=== PATIENT | female | born 1955 | race African-American/Black ===

== ENCOUNTER 2019-03-01 08:09 | Outpatient (CLI) | payer MEDICARE, MEDICAID ==
--- NOTE | 2019-03-04 13:29 | RAD ---
Modified Barium Swallow CLINICAL HISTORY: Dysphagia, unspecified R13.10, feeding difficulties R 63.3 FINDINGS: The examination is performed under real-time fluoroscopy under guidance of the speech ther apy department. 30.3 seconds fluoroscopic time. There were episodes of tracheal penetration only with thin barium liquids, barium nectar and barium honey. No episodes of tracheal aspiration were demonstrated. IMPRESSION: No evidence of stricture or aspiration. Tracheal penetration only with thin barium liquid s, barium nectar and barium honey. Reference speech pathology report for further details.
== END 2019-03-01 08:10 | disposition home or self-care (01) ==
PROVIDERS: ATTEND Nurse Practitioner Acute Care
DX: I69.191 Dysphagia following nontraumatic intracerebral hemorrhage (principal); R13.13 Dysphagia, pharyngeal phase; G20 Parkinson's disease
CPT/HCPCS: 74230

== ENCOUNTER 2020-09-17 12:35 | Outpatient (CLI) | payer MEDICARE, MEDICAID | END 2020-09-17 12:36 | disposition home or self-care (01) | LOC: BICRAD 12:35 | PROVIDERS: ATTEND Internal Medicine Critical Care Medicine | DX: R06.00 Dyspnea, unspecified (principal); J98.4 Other disorders of lung | CPT/HCPCS: 71046 ==

== ENCOUNTER 2020-11-04 19:39 | Inpatient (IN) | payer MEDICARE, MEDICAID ==
[~2020-11-04 19:39] MED LIST: Iopamidol-370 76% 500 ML 1 ML ONE
[2020-11-04 20:20] LABS: #Eosinphils 0.2 thou/uL (0.0-0.7); #Lymphocytes 1.5 thou/uL (1.20-3.40); #Monocytes 0.9 thou/uL (0.11-0.59); #Neutrophils 5.6 thou/uL (1.40-6.50); %Basophils 0.4 % (0.0-1.0); %Eosinophils 2.5 % (0.0-10.0); %Lymphocytes 18.5 % (21.0-51.0); %Monocytes 11.3 % (0.0-10.0); %Neutrophils 67.4 % (42.0-75.0); Hemoglobin 8.2 g/dL (12.0-16.0); Mean Corpuscular HGB CONC 30.3 g/dL (32.0-36.0); Mean Corpuscular Hemoglobin 20.7 pg (27.0-31.0); Mean Corpuscular Volume 68.3 fL (78.0-98.0); Mean Platelet Volume 6.6 fL (7.4-10.4); Platelet Count 318 thou/uL (130-400); RBC Distribution Width 21.4 % (11.5-14.5); Red Blood Cell (RBC) Count 3.97 mill/uL (4.20-5.40); White Blood Cell (WBC) Count 8.3 thou/uL (4.8-10.8)
[2020-11-04 20:30] LABS: PTT 43.6 sec (22.9-36.1); Prothrombin Time 15.7 sec (12.0-14.7)
[2020-11-04 20:31] LABS: INR-International Normal Ratio 1.2
[2020-11-04 20:41] LABS: ALT (SGPT) 13 U/L (8-55); AST (SGOT) 33 U/L (5-34); Albumin 3.4 g/dL (3.4-4.8); Alkaline Phosphatase 127 U/L (40-110); Anion Gap 15 mmol/L (10-20); BUN (Urea Nitrogen) 17 mg/dL (9.8-20.1); Bilirubin, Total 0.8 mg/dL (0.2-1.2); Calc. Creatinine Clearance 0 mL/min (70-130); Calcium 8.5 mg/dL (7.8-10.44); Carbon Dioxide 28 mmol/L (23-31); Chloride 98 mmol/L (98-107); Glucose 122 mg/dL (80-115); Lipase 24 U/L (8-78); Magnesium 1.8 mg/dL (1.6-2.6); Potassium 3.1 mmol/L (3.5-5.1); Protein, Total 7.4 g/dL (5.8-8.1); Sodium 138 mmol/L (136-145)
[2020-11-04] MEDS ORDERED: Lorazepam 2 MG/ML VIAL ONE (21:33)
[2020-11-04 22:15] LABS: SARS-CoV-2 NAA Rapid Test Not Detected (NotDetected)
[2020-11-04] MEDS ORDERED: Dextrose 5 %-0.45 % NaCl 1,000 ML IV SCH (23:00)
[2020-11-04] MEDS ORDERED: Labetalol HCl 100 MG/20 ML VIAL SLOW IVP PRN (23:42)
[2020-11-04] MEDS ORDERED: NO ANTITHROMBOTICS FS SCH (23:42)
[2020-11-04] MEDS ORDERED: Ondansetron PF 4 MG/2 ML Vial IVP PRN (23:42)
[2020-11-04] MEDS ORDERED: Acetaminophen 650 MG Suppository PR PRN (23:42)
[2020-11-04] MEDS ORDERED: hydrALAZINE 20 MG/ML VIAL SLOW IVP PRN (23:42)
[2020-11-05] MEDS: Sodium Chloride 0.9% 1,000 ML IV SCH ×3 (00:41→22:28)
[2020-11-05] MEDS: Potassium Chloride 20 MEQ in Premix Bag 1 BAG IVPB SCH ×3 (02:34→22:23)
[2020-11-05] MEDS ORDERED: Dextrose 50% Abboject 50 ML SYRINGE SLOW IVP PRN (07:46)
[2020-11-05] MEDS ORDERED: HumaLOG 300 UNITS/3 ML VIAL SC PRN (07:46)
[2020-11-05] MEDS ORDERED: Dextrose 5% in Water 1,000 ML IV PRN (07:46)
[2020-11-05] MEDS ORDERED: Famotidine/PF 20 mg/2ml Vial SLOW IVP SCH (09:00)
[2020-11-05 21:06] LABS: #Eosinphils 0.2 thou/uL (0.0-0.7); #Lymphocytes 1.7 thou/uL (1.20-3.40); #Monocytes 0.8 thou/uL (0.11-0.59); #Neutrophils 4.3 thou/uL (1.40-6.50); %Basophils 0.1 % (0.0-1.0); %Eosinophils 2.6 % (0.0-10.0); %Lymphocytes 23.7 % (21.0-51.0); %Monocytes 11.5 % (0.0-10.0); Hemoglobin 8.1 g/dL (12.0-16.0); Mean Corpuscular HGB CONC 29.7 g/dL (32.0-36.0); Mean Corpuscular Hemoglobin 20.6 pg (27.0-31.0); Mean Corpuscular Volume 69.3 fL (78.0-98.0); Platelet Count 313 thou/uL (130-400); RBC Distribution Width 21.3 % (11.5-14.5); Red Blood Cell (RBC) Count 3.91 mill/uL (4.20-5.40)
[2020-11-05 21:25] LABS: ALT (SGPT) 13 U/L (8-55); AST (SGOT) 29 U/L (5-34); Albumin 3.1 g/dL (3.4-4.8); Alkaline Phosphatase 112 U/L (40-110); Anion Gap 12 mmol/L (10-20); BUN (Urea Nitrogen) 18 mg/dL (9.8-20.1); Bilirubin, Total 0.6 mg/dL (0.2-1.2); Calc. Creatinine Clearance 50 mL/min (70-130); Calcium 8.6 mg/dL (7.8-10.44); Carbon Dioxide 28 mmol/L (23-31); Cardiac Risk 3.1 (Less than 4.5); Chloride 106 mmol/L (98-107); Cholesterol 94 mg/dl (< 200 Desired); Globulin 3.8 g/dL (2.4-3.5); Glucose 82 mg/dL (80-115); HDL Cholesterol 30 mg/dL (>60 Neg Risk); LDL Cholesterol, Calculated 43 mg/dL; Magnesium 1.9 mg/dL (1.6-2.6); Potassium 3.3 mmol/L (3.5-5.1); Protein, Total 6.9 g/dL (5.8-8.1); Sodium 143 mmol/L (136-145); Triglycerides 105 mg/dL (Less than 150)
[2020-11-06] MEDS: Potassium Chloride 20 MEQ in Premix Bag 1 BAG IVPB SCH (01:43)
[2020-11-06 05:51] LABS: #Eosinphils 0.2 thou/uL (0.0-0.7); #Lymphocytes 1.7 thou/uL (1.20-3.40); #Monocytes 0.8 thou/uL (0.11-0.59); #Neutrophils 5.1 thou/uL (1.40-6.50); %Basophils 0.1 % (0.0-1.0); %Eosinophils 2.9 % (0.0-10.0); %Lymphocytes 21.4 % (21.0-51.0); %Monocytes 10.6 % (0.0-10.0); %Neutrophils 65.1 % (42.0-75.0); Hemoglobin 7.5 g/dL (12.0-16.0); Mean Corpuscular HGB CONC 28.6 g/dL (32.0-36.0); Mean Corpuscular Hemoglobin 19.8 pg (27.0-31.0); Mean Corpuscular Volume 69.2 fL (78.0-98.0); Mean Platelet Volume 6.7 fL (7.4-10.4); Platelet Count 334 thou/uL (130-400); RBC Distribution Width 21.5 % (11.5-14.5); White Blood Cell (WBC) Count 7.9 thou/uL (4.8-10.8)
[2020-11-06 05:52] LABS: ALT (SGPT) 13 U/L (8-55); AST (SGOT) 30 U/L (5-34); Alkaline Phosphatase 108 U/L (40-110); Anion Gap 13 mmol/L (10-20); BUN (Urea Nitrogen) 16 mg/dL (9.8-20.1); Bilirubin, Total 0.5 mg/dL (0.2-1.2); Calc. Creatinine Clearance 57 mL/min (70-130); Calcium 8.5 mg/dL (7.8-10.44); Carbon Dioxide 25 mmol/L (23-31); Chloride 108 mmol/L (98-107); Globulin 3.8 g/dL (2.4-3.5); Glucose 72 mg/dL (80-115); Potassium 3.7 mmol/L (3.5-5.1); Protein, Total 6.8 g/dL (5.8-8.1); Sodium 142 mmol/L (136-145)
[2020-11-06] MEDS: Famotidine/PF 20 mg/2ml Vial SLOW IVP SCH (12:21)
[2020-11-06] MEDS: Sodium Chloride 0.9% 1,000 ML IV SCH (17:13)
[2020-11-07] MEDS: Sodium Chloride 0.9% 1,000 ML IV SCH (05:32)
[2020-11-07 06:04] LABS: #Eosinphils 0.2 thou/uL (0.0-0.7); #Lymphocytes 1.7 thou/uL (1.20-3.40); #Monocytes 0.8 thou/uL (0.11-0.59); %Basophils 0.3 % (0.0-1.0); %Lymphocytes 22.4 % (21.0-51.0); %Monocytes 9.8 % (0.0-10.0); %Neutrophils 65.4 % (42.0-75.0); Hemoglobin 7.8 g/dL (12.0-16.0); Mean Corpuscular HGB CONC 28.6 g/dL (32.0-36.0); Mean Corpuscular Volume 70.1 fL (78.0-98.0); Mean Platelet Volume 10.6 fL (7.4-10.4); Platelet Count 338 thou/uL (130-400); RBC Distribution Width 21.3 % (11.5-14.5); Red Blood Cell (RBC) Count 3.89 mill/uL (4.20-5.40); White Blood Cell (WBC) Count 7.7 thou/uL (4.8-10.8)
[2020-11-07 06:17] LABS: Anion Gap 13 mmol/L (10-20); BUN (Urea Nitrogen) 11 mg/dL (9.8-20.1); Calc. Creatinine Clearance 67 mL/min (70-130); Calcium 8.9 mg/dL (7.8-10.44); Carbon Dioxide 25 mmol/L (23-31); Chloride 107 mmol/L (98-107); Glucose 113 mg/dL (80-115); Potassium 3.4 mmol/L (3.5-5.1); Sodium 142 mmol/L (136-145)
[2020-11-07] MEDS: Famotidine/PF 20 mg/2ml Vial SLOW IVP SCH (10:13)
[2020-11-07] MEDS: Clopidogrel Bisulfate 75 MG TAB PO SCH (10:14)
[2020-11-07] MEDS: hydrALAZINE 25 MG TAB PO SCH ×2 (15:52→20:13)
[2020-11-07] MEDS: Pregabalin 25 MG CAP PO SCH (20:12)
[2020-11-07] MEDS: Gabapentin 100 MG CAP PO SCH (20:13)
[2020-11-08 05:05] VITALS: BMI 37.9
[2020-11-08] MEDS: FLUoxetine HCl 20 MG CAP PO SCH (09:16)
[2020-11-08] MEDS: Cholecalciferol 1,000 UNITS (25 MCG) TAB PO SCH (09:16)
[2020-11-08] MEDS: Hydrochlorothiazide 25 MG TAB PO SCH (09:16)
[2020-11-08] MEDS: Torsemide 20 MG TAB PO SCH (09:17)
[2020-11-08] MEDS: hydrALAZINE 25 MG TAB PO SCH ×3 (09:17→21:35)
[2020-11-08] MEDS: Gabapentin 100 MG CAP PO SCH ×2 (09:17→21:35)
[2020-11-08] MEDS: Clopidogrel Bisulfate 75 MG TAB PO SCH (09:17)
[2020-11-08] MEDS: Lisinopril 20 MG TAB PO SCH (09:18)
[2020-11-08] MEDS: Famotidine/PF 20 mg/2ml Vial SLOW IVP SCH (09:18)
[2020-11-08] MEDS: Pregabalin 25 MG CAP PO SCH ×2 (09:48→21:38)
[2020-11-08] MEDS ORDERED: methylPREDNISolone Sod Succ 40 MG VIAL IVP SCH (14:30)
[2020-11-08] MEDS: Mometasone 100 MCG/Formoterol 5 MCG 120 PUFF INHALER INH SCH (19:09)
[2020-11-09] MEDS: Mometasone 100 MCG/Formoterol 5 MCG 120 PUFF INHALER INH SCH ×2 (07:08→19:09)
[2020-11-09] MEDS: Hydrochlorothiazide 25 MG TAB PO SCH (10:45)
[2020-11-09] MEDS: FLUoxetine HCl 20 MG CAP PO SCH (10:46)
[2020-11-09] MEDS: Cholecalciferol 1,000 UNITS (25 MCG) TAB PO SCH (10:46)
[2020-11-09] MEDS: Lisinopril 20 MG TAB PO SCH (10:46)
[2020-11-09] MEDS: hydrALAZINE 25 MG TAB PO SCH ×3 (10:47→21:33)
[2020-11-09] MEDS: Torsemide 20 MG TAB PO SCH (10:47)
[2020-11-09] MEDS: Famotidine/PF 20 mg/2ml Vial SLOW IVP SCH (10:48)
[2020-11-09] MEDS: Clopidogrel Bisulfate 75 MG TAB PO SCH (11:14)
[2020-11-09] MEDS: Pregabalin 25 MG CAP PO SCH ×2 (11:15→21:31)
[2020-11-09] MEDS: Gabapentin 100 MG CAP PO SCH ×2 (11:16→21:32)
[2020-11-09] MEDS ORDERED: Lorazepam 0.5 MG TAB PO PRN (13:44)
[2020-11-09] MEDS ORDERED: diphenhydrAMINE 25 MG CAP PO PRN (13:48)
[2020-11-09] MEDS ORDERED: Furosemide 40 MG/4 ML VIAL SLOW IVP SCH (14:00)
[2020-11-09] MEDS: methylPREDNISolone Sod Succ 40 MG VIAL IVP SCH ×2 (14:12→22:21)
[2020-11-09] MEDS: HumaLOG 300 UNITS/3 ML VIAL SC PRN (18:54)
[2020-11-09] MEDS ORDERED: Atorvastatin Calcium 40 MG TAB PO SCH (21:00)
[2020-11-10] MEDS: methylPREDNISolone Sod Succ 40 MG VIAL IVP SCH ×2 (06:29→14:26)
[2020-11-10 06:32] LABS: Anion Gap 13 mmol/L (10-20); BUN (Urea Nitrogen) 16 mg/dL (9.8-20.1); Calc. Creatinine Clearance 59 mL/min (70-130); Calcium 8.9 mg/dL (7.8-10.44); Carbon Dioxide 29 mmol/L (23-31); Chloride 102 mmol/L (98-107); Glucose 224 mg/dL (80-115); Potassium 3.7 mmol/L (3.5-5.1); Sodium 140 mmol/L (136-145)
[2020-11-10] MEDS ORDERED: Pregabalin 75 MG CAP PO SCH (09:00)
[2020-11-10] MEDS: Cholecalciferol 1,000 UNITS (25 MCG) TAB PO SCH (09:47)
[2020-11-10] MEDS: Hydrochlorothiazide 25 MG TAB PO SCH (09:47)
[2020-11-10] MEDS: Torsemide 20 MG TAB PO SCH (09:48)
[2020-11-10] MEDS: Famotidine/PF 20 mg/2ml Vial SLOW IVP SCH (09:49)
[2020-11-10] MEDS: Clopidogrel Bisulfate 75 MG TAB PO SCH (09:49)
[2020-11-10] MEDS: FLUoxetine HCl 20 MG CAP PO SCH (09:49)
[2020-11-10] MEDS: hydrALAZINE 25 MG TAB PO SCH ×2 (09:49→14:26)
[2020-11-10] MEDS: Gabapentin 100 MG CAP PO SCH (09:59)
[2020-11-10] MEDS: Lisinopril 20 MG TAB PO SCH (09:59)
[2020-11-10] MEDS: Mometasone 100 MCG/Formoterol 5 MCG 120 PUFF INHALER INH SCH (09:59)
[2020-11-10] MEDS: HumaLOG 300 UNITS/3 ML VIAL SC PRN (12:03)
[2020-11-10 15:15] VITALS: BP 127/72; TEMP 97.8
== END 2020-11-10 16:15 | DRG 61 ==
LOC: ERS 19:39 → CCU 21:26 → 3SE 11-06 00:47
PROVIDERS: ADMIT Internal Medicine; ATTEND Internal Medicine
DX: I63.9 Cerebral infarction, unspecified (principal); J96.90 Respiratory failure, unspecified, unspecified whether with hypoxia or hypercapnia; I50.32 Chronic diastolic (congestive) heart failure; G81.91 Hemiplegia, unspecified affecting right dominant side; N17.9 Acute kidney failure, unspecified; J44.1 Chronic obstructive pulmonary disease with (acute) exacerbation; I11.0 Hypertensive heart disease with heart failure; E11.9 Type 2 diabetes mellitus without complications; R47.01 Aphasia; E87.6 Hypokalemia; D64.9 Anemia, unspecified; E03.9 Hypothyroidism, unspecified; Z20.822 Contact with and (suspected) exposure to COVID-19; F32.9 Major depressive disorder, single episode, unspecified; R13.12 Dysphagia, oropharyngeal phase; E66.9 Obesity, unspecified; F41.9 Anxiety disorder, unspecified; Z88.2 Allergy status to sulfonamides; Z88.8 Allergy status to other drugs, medicaments and biological substances; Z79.4 Long term (current) use of insulin; Z79.899 Other long term (current) drug therapy; Z98.890 Other specified postprocedural states; Z68.37 Body mass index [BMI] 37.0-37.9, adult
CPT/HCPCS: 0240U; 36415; 36416; 37195; 70450; 70496; 70498; 70551; 71045; 74230; 80048; 80053; 80061; 83690; 83735; 83880; 84484; 85025; 85610; 85730; 93005; 93306; 94640; 95712; 95819; 95957; 96374; J1815; J1940; J2060; J2920; J2997; J3480; J7042; J7050; J7620; Q9967; S0028

== ENCOUNTER 2021-03-03 10:04 | Inpatient (IN) | payer MEDICARE, MEDICAID ==
[2021-03-03 11:50] LABS: #Eosinphils 0.2 thou/uL (0.0-0.7); #Lymphocytes 1.4 thou/uL (1.20-3.40); #Monocytes 1.5 thou/uL (0.11-0.59); #Neutrophils 12.6 thou/uL (1.40-6.50); %Basophils 0.3 % (0.0-1.0); %Lymphocytes 9.1 % (21.0-51.0); %Monocytes 9.4 % (0.0-10.0); %Neutrophils 80.3 % (42.0-75.0); Hemoglobin 6.3 g/dL (12.0-16.0); Mean Corpuscular HGB CONC 28.4 g/dL (32.0-36.0); Mean Corpuscular Hemoglobin 18.5 pg (27.0-31.0); Mean Corpuscular Volume 65.2 fL (78.0-98.0); Mean Platelet Volume 9.6 fL (7.4-10.4); Platelet Count 514 thou/uL (130-400); RBC Distribution Width 21.2 % (11.5-14.5); Red Blood Cell (RBC) Count 3.39 mill/uL (4.20-5.40); White Blood Cell (WBC) Count 15.7 thou/uL (4.8-10.8)
[2021-03-03 12:06] LABS: ALT (SGPT) 17 U/L (8-55); AST (SGOT) 79 U/L (5-34); Albumin 2.7 g/dL (3.4-4.8); Alkaline Phosphatase 271 U/L (40-110); Anion Gap 15 mmol/L (10-20); BUN (Urea Nitrogen) 8 mg/dL (9.8-20.1); Bilirubin, Total 0.9 mg/dL (0.2-1.2); Calc. Creatinine Clearance 0 mL/min (70-130); Carbon Dioxide 23 mmol/L (23-31); Chloride 101 mmol/L (98-107); Globulin 4.7 g/dL (2.4-3.5); Glucose 92 mg/dL (80-115); Potassium 4.5 mmol/L (3.5-5.1); Protein, Total 7.4 g/dL (5.8-8.1); Sodium 134 mmol/L (136-145)
[2021-03-03 12:18] LABS: Bilirubin Negative (Negative); Blood, Urine Negative (Negative); Clarity Clear (Clear); Glucose, Urine (Dipstick) Normal (Negative); Ketone, Urine Negative (Negative); Leukocyte Negative Leu/uL (Negative); Nitrite Negative (Negative); Protein, Urine (Dipstick) 20 mg/dL (Neg-Trace); Specific Gravity, Urine 1.017 (1.002-1.036); pH, Urine 7.5 (5.0-9.0)
[2021-03-03 12:41] LABS: Hypochromia MARKED = >30 cells (100X) (0-5/hpf); MDiff Complete? YES; Microcytosis MARKED = >30 cells (100X) (0-5/hpf); Platelet Morphology Comment Appears Increased; Polychromasia SLIGHT = 2-3 cells (100X) (0-2/hpf); Reflex for Review?? YES; Target Cells SLIGHT = 2-5 cells (100X) (0-1/hpf)
[2021-03-03] MEDS ORDERED: Acetaminophen 325 MG TAB PO PRN (16:59)
[2021-03-03] MEDS ORDERED: HumaLOG 300 UNITS/3 ML VIAL SC PRN ×2 (16:59)
[2021-03-03] MEDS ORDERED: Dextrose 5% in Water 1,000 ML IV PRN (16:59)
[2021-03-03] MEDS ORDERED: GoLYTELY 4,000 ml Bottle PO SCH (19:45)
[2021-03-03] MEDS: Sodium Chloride 0.9% 1,000 ML IV SCH (20:46)
[2021-03-03] MEDS: Pantoprazole 40 MG VIAL IVP SCH (21:10)
[2021-03-03 21:45] LABS: SARS-CoV-2 PCR by NAA Not Detected (NotDetected)
[2021-03-03] MEDS: Ondansetron PF 4 MG/2 ML Vial IVP PRN (22:14)
[2021-03-04 00:38] LABS: SARS-CoV-2 NAA Rapid Test Not Detected (NotDetected)
[2021-03-04 01:07] LABS: Hemoglobin 8.6 g/dL (12.0-16.0)
[2021-03-04] MEDS: Sodium Chloride 0.9% 1,000 ML IV SCH ×2 (05:20→22:30)
[2021-03-04 05:36] LABS: #Lymphocytes 1.9 thou/uL (1.20-3.40); #Monocytes 1.9 thou/uL (0.11-0.59); %Eosinophils 0.2 % (0.0-10.0); %Lymphocytes 9.7 % (21.0-51.0); %Monocytes 9.8 % (0.0-10.0); %Neutrophils 80.3 % (42.0-75.0); Hemoglobin 8.4 g/dL (12.0-16.0); Mean Corpuscular HGB CONC 30.5 g/dL (32.0-36.0); Mean Corpuscular Hemoglobin 21.4 pg (27.0-31.0); Mean Corpuscular Volume 70.1 fL (78.0-98.0); Mean Platelet Volume 9.7 fL (7.4-10.4); Platelet Count 447 thou/uL (130-400); RBC Distribution Width 23.9 % (11.5-14.5); Red Blood Cell (RBC) Count 3.94 mill/uL (4.20-5.40); White Blood Cell (WBC) Count 19.9 thou/uL (4.8-10.8)
[2021-03-04 05:45] LABS: Anion Gap 17 mmol/L (10-20); BUN (Urea Nitrogen) 8 mg/dL (9.8-20.1); Calc. Creatinine Clearance 78 mL/min (70-130); Calcium 8.7 mg/dL (7.8-10.44); Carbon Dioxide 20 mmol/L (23-31); Chloride 100 mmol/L (98-107); Glucose 121 mg/dL (80-115); Sodium 133 mmol/L (136-145)
[2021-03-04] MEDS: Budesonide 0.5 MG/2 ML NEB NEB SCH ×2 (07:37→19:22)
[2021-03-04 08:01] LABS: Band 5 % (5-11); Hypochromia MODERATE=16-30 cells (100X) (0-5/hpf); Lymphocytes 7 % (21-51); MDiff Complete? YES; Microcytosis MODERATE=15-30 cells (100X) (0-5/hpf); Monocytes 8 % (0-10); Neutrophil 80 % (42-75); Platelet Morphology Comment Appears Increased; Polychromasia SLIGHT = 2-3 cells (100X) (0-2/hpf); Target Cells SLIGHT = 2-5 cells (100X) (0-1/hpf)
[2021-03-04] MEDS ORDERED: Fentanyl 100 MCG/2 ML VIAL ONE (12:22)
[2021-03-04] MEDS ORDERED: PROPOFOL 200 MG/20 ML VIAL ONE (12:30)
[2021-03-04] MEDS ORDERED: Promethazine HCl 25 MG/ML VIAL IVPB PRN (12:41)
[2021-03-04] MEDS ORDERED: Promethazine HCl 25 MG/ML VIAL IM PRN (12:41)
[2021-03-04] MEDS ORDERED: Ondansetron HCl/PF 4 MG/2 ML Vial IVP PRN (12:41)
[2021-03-04] MEDS: Ondansetron PF 4 MG/2 ML Vial IVP PRN (16:58)
[2021-03-04] MEDS: Pantoprazole 40 MG VIAL IVP SCH (20:49)
[2021-03-05] MEDS: Sodium Chloride 0.9% 1,000 ML IV SCH ×2 (12:49→19:40)
[2021-03-05] MEDS ORDERED: Meropenem 2 GM in Admixture Fee 1 EACH IVPB SCH (13:00)
[2021-03-05] MEDS ORDERED: Meropenem 1 GM in Sodium Chloride 0.9% 100 ML IVPB SCH ×2 (14:15→23:00)
[2021-03-05] MEDS ORDERED: Sodium Chloride 0.9% 30 ML ONE (14:17)
[2021-03-05] MEDS ORDERED: Bupivacaine PF 0.5% 30 ML VIAL ONE (14:17)
[2021-03-05] MEDS ORDERED: Xylocaine 1% w/ Epi 1:100K 10 ML VIAL ONE (14:17)
[2021-03-05] MEDS ORDERED: Fentanyl 100 MCG/2 ML VIAL ONE ×2 (14:21→18:23)
[2021-03-05] MEDS ORDERED: Lidocaine 1% PF 5 ML VIAL ONE (15:54)
[2021-03-05] MEDS ORDERED: Dexamethasone 20 MG/5 ML VIAL ONE (15:54)
[2021-03-05] MEDS ORDERED: PROPOFOL 200 MG/20 ML VIAL ONE (15:54)
[2021-03-05] MEDS ORDERED: Ondansetron PF 4 MG/2 ML Vial ONE (15:54)
[2021-03-05] MEDS ORDERED: Glycopyrrolate 0.2 MG/ML 5 ML SYRINGE ONE (15:54)
[2021-03-05] MEDS ORDERED: Rocuronium Bromide 10 MG/ML (10ML VIAL) ONE (15:54)
[2021-03-05] MEDS ORDERED: Promethazine HCl 25 MG/ML VIAL IVPB PRN (17:51)
[2021-03-05] MEDS ORDERED: diphenhydrAMINE 50 MG/ML VIAL IVP PRN (17:51)
[2021-03-05] MEDS ORDERED: Ondansetron PF 4 MG/2 ML Vial IVP PRN (17:51)
[2021-03-05] MEDS ORDERED: diphenhydrAMINE 50 MG/ML VIAL IM PRN (17:51)
[2021-03-05] MEDS ORDERED: Naloxone HCl 0.4 mg/ml Vial IV PRN (17:51)
[2021-03-05] MEDS ORDERED: Ondansetron HCl/PF 4 MG/2 ML Vial IVP PRN (17:51)
[2021-03-05] MEDS ORDERED: diphenhydrAMINE 25 MG CAP PO PRN (17:51)
[2021-03-05] MEDS ORDERED: fentaNYL Citrate/PF 2,000 MCG in Sodium Chloride 0.9% 60 ML IV PRN (17:51)
[2021-03-05] MEDS ORDERED: Zolpidem Tartrate 5 MG TAB PO PRN (17:51)
[2021-03-05] MEDS ORDERED: Promethazine HCl 25 MG/ML VIAL IM PRN ×2 (17:51)
[2021-03-05] MEDS ORDERED: Communication Order-Pharmacy FS SCH (18:00)
[2021-03-05] MEDS: Budesonide 0.5 MG/2 ML NEB NEB SCH (18:57)
[2021-03-05 21:25] LABS: Thyroid Stimulating Hormone 2.5107 uIU/mL (0.35-4.94)
[2021-03-05] MEDS: Pantoprazole 40 MG VIAL IVP SCH (21:57)
[2021-03-05] MEDS: Gabapentin 100 MG CAP PO SCH (22:00)
[2021-03-05 22:13] LABS: CEA, Serum 1830.88 ng/mL (< or = 5.0)
[2021-03-06] MEDS: Ketorolac Tromethamine 30 MG/ML VIAL IVP SCH ×4 (00:01→17:29)
[2021-03-06] MEDS: Sodium Chloride 0.9% 1,000 ML IV SCH ×4 (03:43→17:25)
[2021-03-06 05:35] LABS: Anion Gap 16 mmol/L (10-20); BUN (Urea Nitrogen) 14 mg/dL (9.8-20.1); Calc. Creatinine Clearance 65 mL/min (70-130); Calcium 7.5 mg/dL (7.8-10.44); Carbon Dioxide 19 mmol/L (23-31); Chloride 107 mmol/L (98-107); Glucose 182 mg/dL (80-115); Magnesium 1.9 mg/dL (1.6-2.6); Potassium 4.6 mmol/L (3.5-5.1); Sodium 137 mmol/L (136-145)
[2021-03-06 05:36] LABS: ALT (SGPT) 31 U/L (8-55); AST (SGOT) 138 U/L (5-34); Albumin 1.9 g/dL (3.4-4.8); Alkaline Phosphatase 189 U/L (40-110); Anion Gap 17 mmol/L (10-20); BUN (Urea Nitrogen) 14 mg/dL (9.8-20.1); Calc. Creatinine Clearance 66 mL/min (70-130); Calcium 7.5 mg/dL (7.8-10.44); Carbon Dioxide 18 mmol/L (23-31); Chloride 107 mmol/L (98-107); Globulin 3.4 g/dL (2.4-3.5); Glucose 184 mg/dL (80-115); Phosphorus 4.5 mg/dL (2.3-4.7); Potassium 4.7 mmol/L (3.5-5.1); Protein, Total 5.3 g/dL (5.8-8.1); Sodium 137 mmol/L (136-145)
[2021-03-06 05:38] LABS: Hemoglobin 7.7 g/dL (12.0-16.0); Mean Corpuscular HGB CONC 29.3 g/dL (32.0-36.0); Mean Corpuscular Hemoglobin 21.7 pg (27.0-31.0); Mean Platelet Volume 10.4 fL (7.4-10.4); Platelet Count 314 thou/uL (130-400); RBC Distribution Width 24.9 % (11.5-14.5); Red Blood Cell (RBC) Count 3.54 mill/uL (4.20-5.40); White Blood Cell (WBC) Count 19.2 thou/uL (4.8-10.8)
[2021-03-06 05:39] LABS: Band 7 % (5-11); Hypochromia SLIGHT = 6-15 cells (100X) (0-5/hpf); Lymphocytes 14 % (21-51); MDiff Complete? YES; Microcytosis SLIGHT = 6-15 cells (100X) (0-5/hpf); Monocytes 4 % (0-10); Neutrophil 75 % (42-75); Platelet Morphology Comment Appears Adequate
[2021-03-06 05:42] LABS: Bilirubin Moderate (Negative); Blood, Urine Large (Negative); Glucose, Urine (Dipstick) 100 mg/dL (Negative); Ketone, Urine Negative (Negative); Leukocyte Negative (Negative); Nitrite Positive (Negative); Protein, Urine (Dipstick) 30 mg/dL (Neg-Trace)
[2021-03-06 05:51] LABS: Bacteria/HPF 4+ HPF (None Seen); Clarity Turbid (Clear); RBC/HPF Greater than 50 HPF (0-3); Specific Gravity, Urine 1.025 (1.002-1.036); Squamous Epithelial None Seen HPF (0-3); WBC/HPF 21-50 HPF (0-3)
[2021-03-06 05:52] LABS: Urine Culture Reflex Yes Yes
[2021-03-06] MEDS ORDERED: Sodium Chloride 0.9% 1,000 ML IV SCH (07:00)
[2021-03-06] MEDS: Budesonide 0.5 MG/2 ML NEB NEB SCH ×2 (07:45→19:10)
[2021-03-06] MEDS: FLUoxetine HCl 20 MG CAP PO SCH (08:54)
[2021-03-06] MEDS: Gabapentin 100 MG CAP PO SCH ×2 (08:54→21:28)
[2021-03-06] MEDS ORDERED: Lisinopril 20 MG TAB PO SCH (09:00)
[2021-03-06] MEDS ORDERED: FLU VACC QS2021-22(65YR UP)/PF 240 MCG/0.7 ML SYRINGE IM ONE (09:00)
[2021-03-06] MEDS ORDERED: Magnesium 2 GM/50 ML 2 GM in Premix Bag 1 BAG IVPB SCH (09:30)
[2021-03-06] MEDS ORDERED: traMADol HCl 50 MG TAB PO PRN (10:22)
[2021-03-06] MEDS ORDERED: Sodium Chloride 0.9% 500 ML IV SCH (10:30)
[2021-03-06] MEDS: Acetaminophen 500 MG TAB PO SCH ×2 (11:54→17:30)
[2021-03-06] MEDS: Albumin 25% 25 GM/100 ML BOT IVPB SCH ×2 (11:56→17:31)
[2021-03-06] MEDS: Pantoprazole 40 MG VIAL IVP SCH (21:30)
[2021-03-07] MEDS: Acetaminophen 500 MG TAB PO SCH ×4 (00:03→17:33)
[2021-03-07] MEDS: Sodium Chloride 0.9% 1,000 ML IV SCH (00:04)
[2021-03-07] MEDS: Albumin 25% 25 GM/100 ML BOT IVPB SCH ×3 (00:05→13:18)
[2021-03-07] MEDS: Ketorolac Tromethamine 30 MG/ML VIAL IVP SCH ×4 (00:10→17:34)
[2021-03-07 04:53] LABS: #Monocytes 1.2 thou/uL (0.11-0.59); #Neutrophils 12.4 thou/uL (1.40-6.50); %Basophils 0.1 % (0.0-1.0); %Eosinophils 0.1 % (0.0-10.0); %Lymphocytes 6.8 % (21.0-51.0); %Monocytes 8.3 % (0.0-10.0); %Neutrophils 84.7 % (42.0-75.0); Hemoglobin 6.2 g/dL (12.0-16.0); Mean Corpuscular Hemoglobin 21.9 pg (27.0-31.0); Mean Corpuscular Volume 75.4 fL (78.0-98.0); Mean Platelet Volume 9.9 fL (7.4-10.4); Platelet Count 263 thou/uL (130-400); RBC Distribution Width 25.1 % (11.5-14.5); Red Blood Cell (RBC) Count 2.85 mill/uL (4.20-5.40); White Blood Cell (WBC) Count 14.7 thou/uL (4.8-10.8)
[2021-03-07 05:04] LABS: Phosphorus 3.5 mg/dL (2.3-4.7)
[2021-03-07 05:08] LABS: ALT (SGPT) 23 U/L (8-55); AST (SGOT) 83 U/L (5-34); Albumin 2.9 g/dL (3.4-4.8); Alkaline Phosphatase 134 U/L (40-110); Anion Gap 12 mmol/L (10-20); BUN (Urea Nitrogen) 22 mg/dL (9.8-20.1); Bilirubin, Total 0.9 mg/dL (0.2-1.2); Calc. Creatinine Clearance 46 mL/min (70-130); Calcium 7.9 mg/dL (7.8-10.44); Carbon Dioxide 19 mmol/L (23-31); Chloride 110 mmol/L (98-107); Globulin 3.1 g/dL (2.4-3.5); Glucose 151 mg/dL (80-115); Magnesium 2.6 mg/dL (1.6-2.6); Potassium 3.9 mmol/L (3.5-5.1); Sodium 137 mmol/L (136-145)
[2021-03-07] MEDS ORDERED: Furosemide 40 MG/4 ML VIAL SLOW IVP SCH (05:15)
[2021-03-07 06:12] LABS: #Basophils 0.1 thou/uL (0.0-0.2); #Lymphocytes 0.9 thou/uL (1.20-3.40); #Monocytes 1.1 thou/uL (0.11-0.59); %Basophils 0.5 % (0.0-1.0); %Eosinophils 0.2 % (0.0-10.0); %Lymphocytes 6.6 % (21.0-51.0); %Monocytes 7.8 % (0.0-10.0); %Neutrophils 84.9 % (42.0-75.0); Hemoglobin 6.4 g/dL (12.0-16.0); Mean Corpuscular HGB CONC 27.8 g/dL (32.0-36.0); Mean Corpuscular Hemoglobin 21.2 pg (27.0-31.0); Mean Corpuscular Volume 76.3 fL (78.0-98.0); Platelet Count 265 thou/uL (130-400); RBC Distribution Width 25.1 % (11.5-14.5); White Blood Cell (WBC) Count 14.1 thou/uL (4.8-10.8)
[2021-03-07] MEDS: Budesonide 0.5 MG/2 ML NEB NEB SCH ×2 (08:01→18:33)
[2021-03-07] MEDS: FLUoxetine HCl 20 MG CAP PO SCH (08:49)
[2021-03-07] MEDS: Gabapentin 100 MG CAP PO SCH ×2 (08:49→20:08)
[2021-03-07] MEDS ORDERED: Sodium Chloride 0.9% 1,000 ML IV SCH (14:15)
[2021-03-07] MEDS: 1/2 NS w/KCL 20 mEq 1,000 ML IV SCH (18:49)
[2021-03-07] MEDS: Morphine 4 MG/ML VIAL SLOW IVP PRN (20:12)
[2021-03-07 21:21] LABS: Hemoglobin 9.3 g/dL (12.0-16.0); Mean Corpuscular Hemoglobin 23.9 pg (27.0-31.0); Mean Corpuscular Volume 79.8 fL (78.0-98.0); Mean Platelet Volume 10.4 fL (7.4-10.4); Platelet Count 252 thou/uL (130-400); RBC Distribution Width 24.7 % (11.5-14.5); Red Blood Cell (RBC) Count 3.87 mill/uL (4.20-5.40); White Blood Cell (WBC) Count 15.5 thou/uL (4.8-10.8)
[2021-03-07 21:38] LABS: #Eosinphils 0.1 thou/uL (0.0-0.7); #Lymphocytes 1.1 thou/uL (1.20-3.40); #Neutrophils 13.3 thou/uL (1.40-6.50); %Basophils 0.1 % (0.0-1.0); %Eosinophils 0.5 % (0.0-10.0); %Lymphocytes 7.6 % (21.0-51.0); %Monocytes 6.1 % (0.0-10.0); %Neutrophils 85.8 % (42.0-75.0); Anisocytosis MODERATE=16-30 cells (100X) (0-5/hpf); Burr Cells SLIGHT = 2-5 cells (100X) (0-1/hpf); Hypochromia SLIGHT = 6-15 cells (100X) (0-5/hpf); MDiff Complete? YES; Platelet Morphology Comment Appears Adequate; Poikilocytosis SLIGHT = 6-15 cells (100X) (0-5/hpf); Polychromasia SLIGHT = 2-3 cells (100X) (0-2/hpf); Schistocytes SLIGHT = 2-5 cells (100X) (0-1/hpf); Target Cells SLIGHT = 2-5 cells (100X) (0-1/hpf)
[2021-03-08] MEDS: Acetaminophen 500 MG TAB PO SCH ×4 (01:48→18:40)
[2021-03-08] MEDS: Ketorolac Tromethamine 30 MG/ML VIAL IVP SCH ×2 (01:50→06:03)
[2021-03-08] MEDS: Morphine 4 MG/ML VIAL SLOW IVP PRN (05:08)
[2021-03-08] MEDS: 1/2 NS w/KCL 20 mEq 1,000 ML IV SCH ×4 (06:20→22:28)
[2021-03-08 07:05] LABS: Hemoglobin 9.2 g/dL (12.0-16.0); Mean Corpuscular HGB CONC 28.9 g/dL (32.0-36.0); Mean Corpuscular Hemoglobin 23.3 pg (27.0-31.0); Mean Corpuscular Volume 80.5 fL (78.0-98.0); Mean Platelet Volume 10.4 fL (7.4-10.4); Platelet Count 253 thou/uL (130-400); RBC Distribution Width 24.8 % (11.5-14.5); Red Blood Cell (RBC) Count 3.95 mill/uL (4.20-5.40); White Blood Cell (WBC) Count 15.9 thou/uL (4.8-10.8)
[2021-03-08 07:07] LABS: ALT (SGPT) 21 U/L (8-55); AST (SGOT) 59 U/L (5-34); Albumin 3.1 g/dL (3.4-4.8); Alkaline Phosphatase 158 U/L (40-110); Anion Gap 15 mmol/L (10-20); BUN (Urea Nitrogen) 26 mg/dL (9.8-20.1); Bilirubin, Total 2.3 mg/dL (0.2-1.2); Calc. Creatinine Clearance 38 mL/min (70-130); Calcium 8.2 mg/dL (7.8-10.44); Carbon Dioxide 15 mmol/L (23-31); Chloride 112 mmol/L (98-107); Globulin 2.9 g/dL (2.4-3.5); Glucose 115 mg/dL (80-115); Magnesium 2.4 mg/dL (1.6-2.6); Phosphorus 3.2 mg/dL (2.3-4.7); Potassium 3.9 mmol/L (3.5-5.1); Sodium 138 mmol/L (136-145)
[2021-03-08] MEDS: Budesonide 0.5 MG/2 ML NEB NEB SCH ×2 (07:35→19:00)
[2021-03-08 08:14] LABS: #Eosinphils 0.2 thou/uL (0.0-0.7); #Lymphocytes 1.5 thou/uL (1.20-3.40); #Monocytes 1.1 thou/uL (0.11-0.59); %Basophils 0.1 % (0.0-1.0); %Eosinophils 1.4 % (0.0-10.0); %Lymphocytes 9.5 % (21.0-51.0); Band 22 % (5-11); Lymphocytes 13 % (21-51); MDiff Complete? YES; Monocytes 3 % (0-10); Neutrophil 62 % (42-75); Ovalocytes SLIGHT = 2-5 cells (100X) (0-1/hpf); Platelet Morphology Comment Appears Adequate; Polychromasia SLIGHT = 2-3 cells (100X) (0-2/hpf)
[2021-03-08] MEDS ORDERED: Iron, Sodium Ferric Gluconate 250 MG in Sodium Chloride 0.9% 250 ML 250 ML IVPB SCH (09:00)
[2021-03-08] MEDS ORDERED: Albumin 25% 25 GM/100 ML BOT IVPB SCH ×2 (09:00→12:00)
[2021-03-08] MEDS: Gabapentin 100 MG CAP PO SCH ×2 (09:35→20:26)
[2021-03-08] MEDS: FLUoxetine HCl 20 MG CAP PO SCH (09:36)
[2021-03-08 14:07] VITALS: BMI 26.2
[2021-03-08] MEDS: Albumin 25% 25 GM/100 ML BOT IVPB SCH ×2 (14:08→20:26)
[2021-03-09] MEDS: Acetaminophen 500 MG TAB PO SCH ×4 (01:34→19:47)
[2021-03-09] MEDS: Albumin 25% 25 GM/100 ML BOT IVPB SCH ×2 (01:34→10:02)
[2021-03-09] MEDS: Ondansetron PF 4 MG/2 ML Vial IVP PRN ×2 (03:59→10:15)
[2021-03-09 04:06] LABS: #Eosinphils 0.3 thou/uL (0.0-0.7); #Lymphocytes 1.5 thou/uL (1.20-3.40); #Monocytes 1.1 thou/uL (0.11-0.59); #Neutrophils 13.1 thou/uL (1.40-6.50); %Basophils 0.2 % (0.0-1.0); %Lymphocytes 9.1 % (21.0-51.0); %Monocytes 7.1 % (0.0-10.0); %Neutrophils 81.7 % (42.0-75.0); Hemoglobin 8.8 g/dL (12.0-16.0); Mean Corpuscular HGB CONC 29.9 g/dL (32.0-36.0); Mean Corpuscular Hemoglobin 23.7 pg (27.0-31.0); Mean Corpuscular Volume 79.3 fL (78.0-98.0); Mean Platelet Volume 10.3 fL (7.4-10.4); Platelet Count 232 thou/uL (130-400); RBC Distribution Width 24.8 % (11.5-14.5); Red Blood Cell (RBC) Count 3.71 mill/uL (4.20-5.40)
[2021-03-09 04:31] LABS: ALT (SGPT) 17 U/L (8-55); AST (SGOT) 50 U/L (5-34); Albumin 3.5 g/dL (3.4-4.8); Alkaline Phosphatase 186 U/L (40-110); Anion Gap 12 mmol/L (10-20); BUN (Urea Nitrogen) 24 mg/dL (9.8-20.1); Bilirubin, Total 3.2 mg/dL (0.2-1.2); Calc. Creatinine Clearance 39 mL/min (70-130); Calcium 8.7 mg/dL (7.8-10.44); Carbon Dioxide 18 mmol/L (23-31); Chloride 111 mmol/L (98-107); Globulin 2.5 g/dL (2.4-3.5); Glucose 99 mg/dL (80-115); Potassium 4.3 mmol/L (3.5-5.1); Sodium 137 mmol/L (136-145)
[2021-03-09] MEDS: 1/2 NS w/KCL 20 mEq 1,000 ML IV SCH ×2 (06:12→19:31)
[2021-03-09] MEDS: Budesonide 0.5 MG/2 ML NEB NEB SCH ×2 (08:12→19:00)
[2021-03-09] MEDS ORDERED: Non-Formulary Item 1 EACH (Cholecalciferol (Vitamin D3) [Vitamin D3] 125 MCG Capsule) PO SCH (09:00)
[2021-03-09] MEDS: FLUoxetine HCl 20 MG CAP PO SCH (10:02)
[2021-03-09] MEDS: Clopidogrel Bisulfate 75 MG TAB PO SCH (10:02)
[2021-03-09] MEDS: Zinc Sulfate 220 MG CAP PO SCH (10:02)
[2021-03-09] MEDS: Gabapentin 100 MG CAP PO SCH ×2 (10:03→20:22)
[2021-03-09] MEDS: Cholecalciferol 1,000 UNITS (25 MCG) TAB PO SCH (10:15)
[2021-03-10] MEDS: Acetaminophen 500 MG TAB PO SCH ×5 (00:47→22:54)
[2021-03-10] MEDS: 1/2 NS w/KCL 20 mEq 1,000 ML IV SCH ×3 (04:14→22:50)
[2021-03-10] MEDS: Budesonide 0.5 MG/2 ML NEB NEB SCH ×2 (07:21→19:00)
[2021-03-10] MEDS: Gabapentin 100 MG CAP PO SCH ×2 (08:45→22:54)
[2021-03-10] MEDS: Clopidogrel Bisulfate 75 MG TAB PO SCH (08:45)
[2021-03-10] MEDS: FLUoxetine HCl 20 MG CAP PO SCH (08:45)
[2021-03-10] MEDS: Cholecalciferol 1,000 UNITS (25 MCG) TAB PO SCH (08:45)
[2021-03-10] MEDS: Zinc Sulfate 220 MG CAP PO SCH (08:45)
[2021-03-10 08:50] LABS: Hemoglobin 10.2 g/dL (12.0-16.0); Mean Corpuscular HGB CONC 28.4 g/dL (32.0-36.0); Mean Corpuscular Hemoglobin 23.2 pg (27.0-31.0); Mean Corpuscular Volume 81.6 fL (78.0-98.0); Mean Platelet Volume 10.4 fL (7.4-10.4); Platelet Count 254 thou/uL (130-400); RBC Distribution Width 25.7 % (11.5-14.5); Red Blood Cell (RBC) Count 4.38 mill/uL (4.20-5.40); White Blood Cell (WBC) Count 20.9 thou/uL (4.8-10.8)
[2021-03-10 09:18] LABS: ALT (SGPT) 16 U/L (8-55); AST (SGOT) 57 U/L (5-34); Albumin 3.2 g/dL (3.4-4.8); Alkaline Phosphatase 253 U/L (40-110); Anion Gap 14 mmol/L (10-20); BUN (Urea Nitrogen) 20 mg/dL (9.8-20.1); Bilirubin, Total 3.7 mg/dL (0.2-1.2); Calc. Creatinine Clearance 46 mL/min (70-130); Calcium 9.2 mg/dL (7.8-10.44); Carbon Dioxide 15 mmol/L (23-31); Chloride 112 mmol/L (98-107); Glucose 91 mg/dL (80-115); Potassium 4.9 mmol/L (3.5-5.1); Protein, Total 6.2 g/dL (5.8-8.1); Sodium 136 mmol/L (136-145)
[2021-03-10] MEDS ORDERED: Xylocaine 1% w/ Epi 1:100K 10 ML VIAL ONE (10:07)
[2021-03-10] MEDS ORDERED: Bupivacaine PF 0.5% 30 ML VIAL ONE (10:07)
[2021-03-10 10:50] LABS: Anisocytosis MODERATE=16-30 cells (100X) (0-5/hpf); Band 15 % (5-11); Hypochromia SLIGHT = 6-15 cells (100X) (0-5/hpf); Lymphocytes 9 % (21-51); MDiff Complete? YES; Monocytes 2 % (0-10); Neutrophil 74 % (42-75); Platelet Morphology Comment Appears Adequate
[2021-03-10] MEDS ORDERED: Sodium Chloride 0.9% 20 ML ONE (11:04)
[2021-03-10] MEDS ORDERED: Sodium Chloride 0.9% 10 ML ONE (11:10)
[2021-03-10] MEDS ORDERED: HYDROmorphone 2 MG/ML VIAL ONE (11:10)
[2021-03-10] MEDS ORDERED: Propofol 500 MG/50 ML VIAL ONE (11:11)
[2021-03-10] MEDS ORDERED: PHENYLEPHRINE-NS 100 MCG/ML 10 ML SYRINGE ONE (11:23)
[2021-03-10] MEDS ORDERED: Dexamethasone 20 MG/5 ML VIAL ONE (11:23)
[2021-03-10] MEDS ORDERED: PROPOFOL 200 MG/20 ML VIAL ONE (11:23)
[2021-03-10] MEDS ORDERED: ePHEDrine 50 MG/ML VIAL ONE (11:23)
[2021-03-10] MEDS ORDERED: Lidocaine 1% PF 5 ML VIAL ONE (11:23)
[2021-03-10 12:49] LABS: SARS-CoV-2 PCR by NAA Not Detected (NotDetected)
[2021-03-10] MEDS: hydrALAZINE 20 MG/ML VIAL SLOW IVP PRN (21:15)
[2021-03-10] MEDS ORDERED: Pantoprazole 40 MG VIAL IVP SCH (21:30)
[2021-03-11] MEDS: hydrALAZINE 20 MG/ML VIAL SLOW IVP PRN ×2 (01:11→04:22)
[2021-03-11 04:45] LABS: #Lymphocytes 0.8 thou/uL (1.20-3.40); #Monocytes 0.8 thou/uL (0.11-0.59); #Neutrophils 15.1 thou/uL (1.40-6.50); %Monocytes 4.9 % (0.0-10.0); %Neutrophils 90.1 % (42.0-75.0); Hemoglobin 9.5 g/dL (12.0-16.0); Mean Corpuscular HGB CONC 29.2 g/dL (32.0-36.0); Mean Corpuscular Hemoglobin 23.3 pg (27.0-31.0); Mean Corpuscular Volume 79.8 fL (78.0-98.0); Mean Platelet Volume 11.2 fL (7.4-10.4); Platelet Count 259 thou/uL (130-400); RBC Distribution Width 25.9 % (11.5-14.5); Red Blood Cell (RBC) Count 4.09 mill/uL (4.20-5.40); White Blood Cell (WBC) Count 16.8 thou/uL (4.8-10.8)
[2021-03-11 05:04] LABS: ALT (SGPT) 15 U/L (8-55); AST (SGOT) 50 U/L (5-34); Albumin 2.9 g/dL (3.4-4.8); Alkaline Phosphatase 262 U/L (40-110); Anion Gap 15 mmol/L (10-20); BUN (Urea Nitrogen) 20 mg/dL (9.8-20.1); Bilirubin, Total 2.1 mg/dL (0.2-1.2); Calc. Creatinine Clearance 53 mL/min (70-130); Calcium 8.7 mg/dL (7.8-10.44); Carbon Dioxide 15 mmol/L (23-31); Chloride 111 mmol/L (98-107); Glucose 116 mg/dL (80-115); Potassium 5.9 mmol/L (3.5-5.1); Protein, Total 5.9 g/dL (5.8-8.1); Sodium 135 mmol/L (136-145)
[2021-03-11] MEDS: Sodium Chloride 0.45% 1,000 ML IV SCH ×2 (06:29→19:56)
[2021-03-11] MEDS: Acetaminophen 500 MG TAB PO SCH ×3 (06:30→19:43)
[2021-03-11] MEDS: 1/2 NS w/KCL 20 mEq 1,000 ML IV SCH (06:34)
[2021-03-11] MEDS: Budesonide 0.5 MG/2 ML NEB NEB SCH ×2 (07:25→19:40)
[2021-03-11] MEDS: Pantoprazole 40 MG VIAL IVP SCH ×2 (10:47→20:57)
[2021-03-11] MEDS: Cholecalciferol 1,000 UNITS (25 MCG) TAB PO SCH (10:54)
[2021-03-11] MEDS: Clopidogrel Bisulfate 75 MG TAB PO SCH (10:54)
[2021-03-11] MEDS: Gabapentin 100 MG CAP PO SCH ×2 (10:54→19:44)
[2021-03-11] MEDS: FLUoxetine HCl 20 MG CAP PO SCH (10:54)
[2021-03-11] MEDS: Zinc Sulfate 220 MG CAP PO SCH (10:55)
[2021-03-11] MEDS ORDERED: Midazolam HCl 2 mg/2 ml Vial ONE (13:30)
[2021-03-11] MEDS ORDERED: Ketamine 50 MG/ML (10ML VIAL) ONE (13:30)
[2021-03-11] MEDS ORDERED: Glycopyrrolate 0.2 MG/ML 5 ML SYRINGE ONE ×2 (13:31→13:56)
[2021-03-11] MEDS ORDERED: Ondansetron PF 4 MG/2 ML Vial ONE (13:56)
[2021-03-11] MEDS ORDERED: Metoclopramide HCl 10 MG/2 ML VIAL ONE (13:56)
[2021-03-11] MEDS ORDERED: Promethazine HCl 25 MG/ML VIAL IVPB PRN (14:25)
[2021-03-11] MEDS ORDERED: Ondansetron HCl/PF 4 MG/2 ML Vial IVP PRN (14:25)
[2021-03-11] MEDS ORDERED: Insulin Regular 300 UNITS/3 ML VIAL IVP SCH (16:30)
[2021-03-11] MEDS ORDERED: Dextrose 50% Abboject 50 ML SYRINGE SLOW IVP SCH (16:30)
[2021-03-11] MEDS ORDERED: Albuterol Sulfate 2.5 mg/0.5 ml Neb NEB SCH (17:15)
[2021-03-11] MEDS ORDERED: Albuterol Sulfate 2.5 mg/3 ml Neb NEB SCH (17:45)
[2021-03-11 20:37] LABS: Potassium 5.3 mmol/L (3.5-5.1)
[2021-03-12] MEDS: Acetaminophen 500 MG TAB PO SCH ×5 (00:16→23:51)
[2021-03-12] MEDS: Morphine 4 MG/ML VIAL SLOW IVP PRN ×4 (05:09→22:58)
[2021-03-12] MEDS: Ondansetron PF 4 MG/2 ML Vial IVP PRN ×3 (05:13→14:54)
[2021-03-12] MEDS: Sodium Chloride 0.45% 1,000 ML IV SCH ×3 (05:16→20:43)
[2021-03-12 05:58] LABS: Hemoglobin 9.9 g/dL (12.0-16.0); Mean Corpuscular HGB CONC 29.2 g/dL (32.0-36.0); Mean Corpuscular Hemoglobin 23.1 pg (27.0-31.0); Mean Corpuscular Volume 79.2 fL (78.0-98.0); Mean Platelet Volume 6.4 fL (7.4-10.4); Platelet Count 301 thou/uL (130-400); RBC Distribution Width 26.6 % (11.5-14.5); Red Blood Cell (RBC) Count 4.26 mill/uL (4.20-5.40); White Blood Cell (WBC) Count 23.8 thou/uL (4.8-10.8)
[2021-03-12 06:00] LABS: ALT (SGPT) 13 U/L (8-55); AST (SGOT) 54 U/L (5-34); Albumin 2.8 g/dL (3.4-4.8); Alkaline Phosphatase 282 U/L (40-110); Anion Gap 16 mmol/L (10-20); BUN (Urea Nitrogen) 25 mg/dL (9.8-20.1); Bilirubin, Total 1.6 mg/dL (0.2-1.2); Calc. Creatinine Clearance 57 mL/min (70-130); Carbon Dioxide 15 mmol/L (23-31); Chloride 111 mmol/L (98-107); Globulin 3.2 g/dL (2.4-3.5); Glucose 103 mg/dL (80-115); Potassium 4.9 mmol/L (3.5-5.1); Sodium 137 mmol/L (136-145)
[2021-03-12 06:13] LABS: Anisocytosis MODERATE=16-30 cells (100X) (0-5/hpf); Band 6 % (5-11); Hypochromia SLIGHT = 6-15 cells (100X) (0-5/hpf); Lymphocytes 4 % (21-51); MDiff Complete? YES; Microcytosis SLIGHT = 6-15 cells (100X) (0-5/hpf); Monocytes 2 % (0-10); Neutrophil 88 % (42-75); Target Cells SLIGHT = 2-5 cells (100X) (0-1/hpf)
[2021-03-12] MEDS: Budesonide 0.5 MG/2 ML NEB NEB SCH ×2 (07:32→19:33)
[2021-03-12] MEDS: Zinc Sulfate 220 MG CAP PO SCH (10:49)
[2021-03-12] MEDS: Gabapentin 100 MG CAP PO SCH ×2 (10:51→20:44)
[2021-03-12] MEDS: Clopidogrel Bisulfate 75 MG TAB PO SCH (10:51)
[2021-03-12] MEDS: FLUoxetine HCl 20 MG CAP PO SCH (10:51)
[2021-03-12] MEDS: Cholecalciferol 1,000 UNITS (25 MCG) TAB PO SCH (10:51)
[2021-03-12] MEDS: Pantoprazole 40 MG VIAL IVP SCH ×2 (10:52→20:43)
[2021-03-13] MEDS: Morphine 4 MG/ML VIAL SLOW IVP PRN ×4 (03:49→16:49)
[2021-03-13 06:02] LABS: ALT (SGPT) 16 U/L (8-55); AST (SGOT) 76 U/L (5-34); Albumin 2.7 g/dL (3.4-4.8); Alkaline Phosphatase 257 U/L (40-110); Anion Gap 14 mmol/L (10-20); BUN (Urea Nitrogen) 24 mg/dL (9.8-20.1); Bilirubin, Total 1.5 mg/dL (0.2-1.2); Calc. Creatinine Clearance 57 mL/min (70-130); Calcium 9.3 mg/dL (7.8-10.44); Carbon Dioxide 17 mmol/L (23-31); Chloride 109 mmol/L (98-107); Globulin 3.3 g/dL (2.4-3.5); Glucose 83 mg/dL (80-115); Potassium 4.6 mmol/L (3.5-5.1); Sodium 135 mmol/L (136-145)
[2021-03-13] MEDS: Acetaminophen 500 MG TAB PO SCH ×3 (06:15→17:51)
[2021-03-13 06:28] LABS: Anisocytosis MODERATE=16-30 cells (100X) (0-5/hpf); Band 10 % (5-11); Eosinophils 1 % (0-10); Hemoglobin 9.2 g/dL (12.0-16.0); Hypochromia SLIGHT = 6-15 cells (100X) (0-5/hpf); Lymphocytes 4 % (21-51); MDiff Complete? YES; Mean Corpuscular Hemoglobin 23.8 pg (27.0-31.0); Mean Corpuscular Volume 79.2 fL (78.0-98.0); Mean Platelet Volume 11.3 fL (7.4-10.4); Monocytes 6 % (0-10); Neutrophil 79 % (42-75); Platelet Count 260 thou/uL (130-400); RBC Distribution Width 27.6 % (11.5-14.5); Red Blood Cell (RBC) Count 3.88 mill/uL (4.20-5.40); Target Cells SLIGHT = 2-5 cells (100X) (0-1/hpf); White Blood Cell (WBC) Count 21.1 thou/uL (4.8-10.8)
[2021-03-13] MEDS: Budesonide 0.5 MG/2 ML NEB NEB SCH ×2 (06:50→19:39)
[2021-03-13] MEDS: Pantoprazole 40 MG VIAL IVP SCH ×2 (08:46→21:26)
[2021-03-13] MEDS: Cholecalciferol 1,000 UNITS (25 MCG) TAB PO SCH (08:46)
[2021-03-13] MEDS: Zinc Sulfate 220 MG CAP PO SCH (08:47)
[2021-03-13] MEDS: Gabapentin 100 MG CAP PO SCH ×2 (08:47→21:25)
[2021-03-13] MEDS: Clopidogrel Bisulfate 75 MG TAB PO SCH (08:47)
[2021-03-13] MEDS: FLUoxetine HCl 20 MG CAP PO SCH (08:47)
[2021-03-13] MEDS: Sodium Chloride 0.45% 1,000 ML IV SCH ×2 (08:48→15:10)
[2021-03-13] MEDS ORDERED: Iopamidol 370 76% 100 ML VIAL ONE (09:47)
[2021-03-13] MEDS: Ondansetron PF 4 MG/2 ML Vial IVP PRN (11:37)
[2021-03-14] MEDS: Acetaminophen 500 MG TAB PO SCH ×4 (00:26→16:47)
[2021-03-14] MEDS: Budesonide 0.5 MG/2 ML NEB NEB SCH ×2 (06:20→18:45)
[2021-03-14] MEDS: FLUoxetine HCl 20 MG CAP PO SCH (10:38)
[2021-03-14] MEDS: Pantoprazole 40 MG VIAL IVP SCH ×2 (10:38→20:46)
[2021-03-14] MEDS: Gabapentin 100 MG CAP PO SCH ×2 (10:40→21:57)
[2021-03-14] MEDS: Cholecalciferol 1,000 UNITS (25 MCG) TAB PO SCH (10:40)
[2021-03-14] MEDS: Zinc Sulfate 220 MG CAP PO SCH (10:41)
[2021-03-14] MEDS: Clopidogrel Bisulfate 75 MG TAB PO SCH (10:41)
[2021-03-14] MEDS: Sodium Chloride 0.45% 1,000 ML IV SCH (10:42)
[2021-03-14] MEDS: Ondansetron PF 4 MG/2 ML Vial IVP PRN ×2 (11:07→16:47)
[2021-03-14] MEDS: Morphine 4 MG/ML VIAL SLOW IVP PRN ×2 (16:42→22:01)
[2021-03-14] MEDS: Metoclopramide 10 MG/10 ML UDCUP PER TUBE SCH (16:47)
[2021-03-14] MEDS ORDERED: metroNIDAZOLE 500 MG in Premix Bag 1 BAG IVPB SCH (18:00)
[2021-03-14] MEDS ORDERED: Meropenem 1 GM in Sodium Chloride 0.9% 100 ML IVPB SCH (18:15)
[2021-03-15] MEDS: Acetaminophen 500 MG TAB PO SCH ×4 (00:33→20:43)
[2021-03-15] MEDS: Sodium Chloride 0.45% 1,000 ML IV SCH (00:34)
[2021-03-15] MEDS: Metoclopramide 10 MG/10 ML UDCUP PER TUBE SCH ×2 (00:39→10:09)
[2021-03-15] MEDS: Meropenem 1 GM in Sodium Chloride 0.9% 100 ML IVPB SCH ×3 (02:18→17:25)
[2021-03-15] MEDS: Morphine 4 MG/ML VIAL SLOW IVP PRN (04:51)
[2021-03-15] MEDS: Budesonide 0.5 MG/2 ML NEB NEB SCH ×2 (06:46→19:31)
[2021-03-15 06:53] LABS: Hemoglobin 8.7 g/dL (12.0-16.0); Mean Corpuscular HGB CONC 29.3 g/dL (32.0-36.0); Mean Corpuscular Hemoglobin 23.5 pg (27.0-31.0); Mean Corpuscular Volume 80.4 fL (78.0-98.0); Mean Platelet Volume 10.6 fL (7.4-10.4); Platelet Count 289 thou/uL (130-400); RBC Distribution Width 27.8 % (11.5-14.5); Red Blood Cell (RBC) Count 3.69 mill/uL (4.20-5.40); White Blood Cell (WBC) Count 24.8 thou/uL (4.8-10.8)
[2021-03-15 07:12] LABS: ALT (SGPT) 11 U/L (8-55); AST (SGOT) 50 U/L (5-34); Albumin 2.4 g/dL (3.4-4.8); Alkaline Phosphatase 193 U/L (40-110); Anion Gap 12 mmol/L (10-20); BUN (Urea Nitrogen) 17 mg/dL (9.8-20.1); Bilirubin, Total 1.4 mg/dL (0.2-1.2); Calc. Creatinine Clearance 80 mL/min (70-130); Calcium 9.3 mg/dL (7.8-10.44); Carbon Dioxide 17 mmol/L (23-31); Chloride 110 mmol/L (98-107); Globulin 3.4 g/dL (2.4-3.5); Potassium 4.3 mmol/L (3.5-5.1); Protein, Total 5.8 g/dL (5.8-8.1); Sodium 135 mmol/L (136-145)
[2021-03-15 07:39] LABS: Glucose 56 mg/dL (80-115)
[2021-03-15] MEDS: Dextrose 50% Abboject 50 ML SYRINGE SLOW IVP PRN ×2 (08:24→23:21)
[2021-03-15] MEDS: Cholecalciferol 1,000 UNITS (25 MCG) TAB PO SCH (09:52)
[2021-03-15] MEDS: Gabapentin 100 MG CAP PO SCH ×2 (09:52→20:43)
[2021-03-15] MEDS: FLUoxetine HCl 20 MG CAP PO SCH (09:53)
[2021-03-15] MEDS: Clopidogrel Bisulfate 75 MG TAB PO SCH (09:53)
[2021-03-15] MEDS: Zinc Sulfate 220 MG CAP PO SCH (09:53)
[2021-03-15] MEDS: Pantoprazole 40 MG VIAL IVP SCH ×2 (09:57→20:44)
[2021-03-15 10:37] LABS: Anisocytosis MODERATE=16-30 cells (100X) (0-5/hpf); Band 21 % (5-11); Hypochromia SLIGHT = 6-15 cells (100X) (0-5/hpf); Lymphocytes 2 % (21-51); MDiff Complete? YES; Monocytes 5 % (0-10); Neutrophil 72 % (42-75); Platelet Morphology Comment Appears Adequate; Polychromasia SLIGHT = 2-3 cells (100X) (0-2/hpf)
[2021-03-15] MEDS: Metoclopramide HCl 10 MG/2 ML VIAL IVP SCH ×2 (15:10→20:44)
[2021-03-16] MEDS: Sodium Chloride 0.45% 1,000 ML IV SCH ×3 (01:32→20:05)
[2021-03-16] MEDS: Acetaminophen 500 MG TAB PO SCH ×5 (01:32→23:48)
[2021-03-16] MEDS: Dextrose 5 %-0.45 % NaCl 1,000 ML IV SCH ×2 (02:04→22:56)
[2021-03-16] MEDS: Meropenem 1 GM in Sodium Chloride 0.9% 100 ML IVPB SCH ×3 (02:05→17:42)
[2021-03-16 04:32] LABS: #Eosinphils 0.1 thou/uL (0.0-0.7); #Monocytes 1.7 thou/uL (0.11-0.59); #Neutrophils 17.2 thou/uL (1.40-6.50); %Basophils 0.1 % (0.0-1.0); %Eosinophils 0.4 % (0.0-10.0); %Lymphocytes 4.8 % (21.0-51.0); %Monocytes 8.3 % (0.0-10.0); %Neutrophils 86.4 % (42.0-75.0); Hemoglobin 8.5 g/dL (12.0-16.0); Mean Corpuscular HGB CONC 29.8 g/dL (32.0-36.0); Mean Corpuscular Hemoglobin 23.8 pg (27.0-31.0); Mean Corpuscular Volume 79.9 fL (78.0-98.0); Mean Platelet Volume 10.9 fL (7.4-10.4); Platelet Count 326 thou/uL (130-400); RBC Distribution Width 27.7 % (11.5-14.5); Red Blood Cell (RBC) Count 3.58 mill/uL (4.20-5.40)
[2021-03-16] MEDS: Metoclopramide HCl 10 MG/2 ML VIAL IVP SCH ×3 (05:30→20:28)
[2021-03-16 05:47] LABS: Anion Gap 14 mmol/L (10-20); BUN (Urea Nitrogen) 16 mg/dL (9.8-20.1); Calc. Creatinine Clearance 76 mL/min (70-130); Carbon Dioxide 17 mmol/L (23-31); Chloride 109 mmol/L (98-107); Potassium 4.1 mmol/L (3.5-5.1); Sodium 136 mmol/L (136-145)
[2021-03-16 05:48] LABS: ALT (SGPT) 13 U/L (8-55); AST (SGOT) 97 U/L (5-34); Albumin 2.5 g/dL (3.4-4.8); Alkaline Phosphatase 275 U/L (40-110); Bilirubin, Total 1.4 mg/dL (0.2-1.2); Calcium 9.6 mg/dL (7.8-10.44); Globulin 3.6 g/dL (2.4-3.5); Glucose 91 mg/dL (80-115); Magnesium 2.1 mg/dL (1.6-2.6); Phosphorus 3.6 mg/dL (2.3-4.7); Protein, Total 6.1 g/dL (5.8-8.1)
[2021-03-16] MEDS: Budesonide 0.5 MG/2 ML NEB NEB SCH ×2 (07:52→18:41)
[2021-03-16 09:03] LABS: INR-International Normal Ratio 2.1; PTT 70.5 sec (22.9-36.1)
[2021-03-16] MEDS ORDERED: Sodium Bicarbonate 2.5 MEQ/5 ML VIAL ONE (09:48)
[2021-03-16] MEDS: Pantoprazole 40 MG VIAL IVP SCH ×2 (10:59→20:28)
[2021-03-16 11:29] LABS: RBC Count-Automated (BF) 3207 /cu.mm; WBC/Nucleated-Auto (BF) 4530 /cu.mm
[2021-03-16 11:32] LABS: BF Color Yellow; Body Fluid Source Ascites Body Fluid; Clarity Hazy (Clear); Tube # EDTA
[2021-03-16 12:12] LABS: BF Segmented Neutrophils 68 %; Cell Count Non Hematic 25 %; Lymphocytes 7 %
[2021-03-16] MEDS: Cholecalciferol 1,000 UNITS (25 MCG) TAB PO SCH (12:24)
[2021-03-16] MEDS: Clopidogrel Bisulfate 75 MG TAB PO SCH (12:25)
[2021-03-16] MEDS: FLUoxetine HCl 20 MG CAP PO SCH (12:25)
[2021-03-16] MEDS: Zinc Sulfate 220 MG CAP PO SCH (12:25)
[2021-03-16] MEDS: Gabapentin 100 MG CAP PO SCH ×2 (12:26→20:29)
[2021-03-16] MEDS: Ondansetron PF 4 MG/2 ML Vial IVP PRN (12:41)
[2021-03-16] MEDS: Morphine 4 MG/ML VIAL SLOW IVP PRN ×3 (12:59→23:42)
[2021-03-16 19:54] LABS: SARS-CoV-2 PCR by NAA Not Detected (NotDetected)
[2021-03-16] MEDS ORDERED: AA 4.25 %/CALCIUM/LYTES/D5W 2,000 ML IV SCH (23:45)
[2021-03-17] MEDS: Meropenem 1 GM in Sodium Chloride 0.9% 100 ML IVPB SCH ×3 (00:56→17:34)
[2021-03-17] MEDS: Ondansetron PF 4 MG/2 ML Vial IVP PRN ×3 (03:37→12:40)
[2021-03-17] MEDS: Metoclopramide HCl 10 MG/2 ML VIAL IVP SCH ×3 (05:24→21:45)
[2021-03-17] MEDS: Acetaminophen 500 MG TAB PO SCH ×4 (05:25→23:57)
[2021-03-17 05:39] LABS: #Eosinphils 0.1 thou/uL (0.0-0.7); #Lymphocytes 1.1 thou/uL (1.20-3.40); #Monocytes 1.8 thou/uL (0.11-0.59); %Basophils 0.1 % (0.0-1.0); %Eosinophils 0.6 % (0.0-10.0); %Monocytes 10.2 % (0.0-10.0); %Neutrophils 83.1 % (42.0-75.0); Hemoglobin 8.6 g/dL (12.0-16.0); Mean Corpuscular HGB CONC 29.7 g/dL (32.0-36.0); Mean Corpuscular Hemoglobin 23.8 pg (27.0-31.0); Mean Platelet Volume 10.6 fL (7.4-10.4); Platelet Count 327 thou/uL (130-400); RBC Distribution Width 27.6 % (11.5-14.5); Red Blood Cell (RBC) Count 3.61 mill/uL (4.20-5.40); White Blood Cell (WBC) Count 18.1 thou/uL (4.8-10.8)
[2021-03-17 05:57] LABS: ALT (SGPT) 11 U/L (8-55); AST (SGOT) 46 U/L (5-34); Albumin 2.3 g/dL (3.4-4.8); Alkaline Phosphatase 232 U/L (40-110); Anion Gap 12 mmol/L (10-20); BUN (Urea Nitrogen) 13 mg/dL (9.8-20.1); Bilirubin, Total 1.4 mg/dL (0.2-1.2); Calc. Creatinine Clearance 79 mL/min (70-130); Calcium 9.6 mg/dL (7.8-10.44); Carbon Dioxide 18 mmol/L (23-31); Chloride 110 mmol/L (98-107); Globulin 3.4 g/dL (2.4-3.5); Glucose 127 mg/dL (80-115); Potassium 3.8 mmol/L (3.5-5.1); Protein, Total 5.7 g/dL (5.8-8.1); Sodium 136 mmol/L (136-145)
[2021-03-17] MEDS: Budesonide 0.5 MG/2 ML NEB NEB SCH ×2 (07:51→19:20)
[2021-03-17] MEDS: Pantoprazole 40 MG VIAL IVP SCH ×2 (09:34→21:45)
[2021-03-17] MEDS: FLUoxetine HCl 20 MG CAP PO SCH (09:35)
[2021-03-17] MEDS: Cholecalciferol 1,000 UNITS (25 MCG) TAB PO SCH (09:35)
[2021-03-17] MEDS: Clopidogrel Bisulfate 75 MG TAB PO SCH (09:35)
[2021-03-17] MEDS: Gabapentin 100 MG CAP PO SCH ×2 (09:35→21:45)
[2021-03-17] MEDS: Zinc Sulfate 220 MG CAP PO SCH (09:36)
[2021-03-17] MEDS: Morphine 4 MG/ML VIAL SLOW IVP PRN ×3 (12:41→23:21)
[2021-03-17] MEDS: Fluconazole In NaCl,Iso-Osm 200 MG in Premix Bag 1 BAG IVPB SCH (15:20)
[2021-03-17] MEDS ORDERED: Electrolyte Replacement Protocol FS PRN (15:30)
[2021-03-17] MEDS ORDERED: Multivitamins, Adult 10 ML, TRACE ELEMENT CONCENTRATE 1 ML in D15W-AA 5% with Lytes 2,0... IV SCH (16:00)
[2021-03-17] MEDS ORDERED: Fat Emulsion 250 ML IVPB SCH (16:00)
[2021-03-17] MEDS: Multivitamins, Adult 10 ML, TRACE ELEMENT CONCENTRATE 1 ML in CLINIMIX E 5/20 2,000 ML IV SCH (16:44)
[2021-03-18] MEDS: Meropenem 1 GM in Sodium Chloride 0.9% 100 ML IVPB SCH ×3 (02:37→17:21)
[2021-03-18] MEDS: Morphine 4 MG/ML VIAL SLOW IVP PRN ×4 (04:27→23:01)
[2021-03-18] MEDS: Acetaminophen 500 MG TAB PO SCH ×4 (05:12→23:00)
[2021-03-18] MEDS: Metoclopramide HCl 10 MG/2 ML VIAL IVP SCH ×3 (05:13→21:16)
[2021-03-18 06:46] LABS: Hemoglobin 9.7 g/dL (12.0-16.0); Mean Corpuscular HGB CONC 29.3 g/dL (32.0-36.0); Mean Corpuscular Hemoglobin 23.8 pg (27.0-31.0); Mean Corpuscular Volume 81.4 fL (78.0-98.0); Mean Platelet Volume 10.6 fL (7.4-10.4); Platelet Count 314 thou/uL (130-400); RBC Distribution Width 27.9 % (11.5-14.5); Red Blood Cell (RBC) Count 4.06 mill/uL (4.20-5.40)
[2021-03-18] MEDS: Budesonide 0.5 MG/2 ML NEB NEB SCH ×2 (06:54→19:00)
[2021-03-18 07:00] LABS: Anisocytosis MODERATE=16-30 cells (100X) (0-5/hpf); Band 14 % (5-11); Eosinophils 1 % (0-10); Hypochromia SLIGHT = 6-15 cells (100X) (0-5/hpf); Lymphocytes 3 % (21-51); MDiff Complete? YES; Microcytosis SLIGHT = 6-15 cells (100X) (0-5/hpf); Monocytes 9 % (0-10); Myelocyte 1 % (0-0); Neutrophil 72 % (42-75); Target Cells SLIGHT = 2-5 cells (100X) (0-1/hpf)
[2021-03-18 07:03] LABS: ALT (SGPT) 10 U/L (8-55); AST (SGOT) 53 U/L (5-34); Albumin 2.3 g/dL (3.4-4.8); Alkaline Phosphatase 202 U/L (40-110); Anion Gap 12 mmol/L (10-20); BUN (Urea Nitrogen) 17 mg/dL (9.8-20.1); Bilirubin, Total 1.2 mg/dL (0.2-1.2); Calc. Creatinine Clearance 84 mL/min (70-130); Calcium 9.9 mg/dL (7.8-10.44); Carbon Dioxide 17 mmol/L (23-31); Cardiac Risk 5.8 (Less than 4.5); Chloride 111 mmol/L (98-107); Cholesterol 99 mg/dl (< 200 Desired); Globulin 3.7 g/dL (2.4-3.5); Glucose 310 mg/dL (80-115); HDL Cholesterol 17 mg/dL (>60 Neg Risk); Phosphorus 2.4 mg/dL (2.3-4.7); Potassium 4.3 mmol/L (3.5-5.1); Sodium 136 mmol/L (136-145)
[2021-03-18 07:08] LABS: LDL Cholesterol, Calculated 38 mg/dL
[2021-03-18] MEDS ORDERED: Magnesium 2 GM/50 ML 2 GM in Premix Bag 1 BAG IVPB SCH (08:00)
[2021-03-18 08:07] LABS: Triglycerides 212 mg/dL (Less than 150)
[2021-03-18] MEDS: Pantoprazole 40 MG VIAL IVP SCH ×2 (09:24→21:16)
[2021-03-18] MEDS: FLUoxetine HCl 20 MG CAP PO SCH (10:28)
[2021-03-18] MEDS: Clopidogrel Bisulfate 75 MG TAB PO SCH (10:28)
[2021-03-18] MEDS: Cholecalciferol 1,000 UNITS (25 MCG) TAB PO SCH (10:28)
[2021-03-18] MEDS: Gabapentin 100 MG CAP PO SCH ×2 (10:29→20:37)
[2021-03-18] MEDS: Zinc Sulfate 220 MG CAP PO SCH (10:29)
[2021-03-18] MEDS: Insulin Regular 300 UNITS/3 ML VIAL SC PRN ×2 (13:14→17:58)
[2021-03-18] MEDS: Multivitamins, Adult 10 ML, TRACE ELEMENT CONCENTRATE 1 ML in CLINIMIX E 5/20 2,000 ML IV SCH (14:13)
[2021-03-18] MEDS: Fluconazole In NaCl,Iso-Osm 200 MG in Premix Bag 1 BAG IVPB SCH (14:14)
[2021-03-18] MEDS ORDERED: NPH, Human Insulin Isophane 300 UNIT/3 ML VIAL SC SCH ×2 (15:15→21:00)
[2021-03-18 19:46] VITALS: TEMP 97.9
[2021-03-18] MEDS ORDERED: Fleet Enema 133 ML BOT PR SCH (21:00)
[2021-03-19] MEDS: Insulin Regular 300 UNITS/3 ML VIAL SC PRN (00:51)
[2021-03-19 02:48] VITALS: BP 128/75
[2021-03-19] MEDS ORDERED: NPH, Human Insulin Isophane 300 UNIT/3 ML VIAL SC SCH (09:00)
[2021-03-19] MEDS ORDERED: Fat Emulsion 250 ML IVPB SCH (09:00)
== END 2021-03-19 01:32 | disposition expired | DRG 329 ==
LOC: ERS 10:04 → ERHOLD 12:47 → MSONC 18:48
PROVIDERS: ADMIT Family Medicine; ATTEND Internal Medicine
PROC: 30233N1 Transfusion of Nonautologous Red Blood Cells into Peripheral Vein, Percutaneous Approach (ICD-10-PCS; 2021-03-03)
PROC: 0DJ08ZZ Inspection of Upper Intestinal Tract, Via Natural or Artificial Opening Endoscopic (ICD-10-PCS; 2021-03-04)
PROC: 0DBN8ZX Excision of Sigmoid Colon, Via Natural or Artificial Opening Endoscopic, Diagnostic (ICD-10-PCS; 2021-03-04)
PROC: 0DBL8ZX Excision of Transverse Colon, Via Natural or Artificial Opening Endoscopic, Diagnostic (ICD-10-PCS; 2021-03-04)
PROC: 0DTF0ZZ Resection of Right Large Intestine, Open Approach (ICD-10-PCS; principal; 2021-03-05)
PROC: 0W9G0ZZ Drainage of Peritoneal Cavity, Open Approach (ICD-10-PCS; 2021-03-05)
PROC: 0DBB0ZZ Excision of Ileum, Open Approach (ICD-10-PCS; 2021-03-05)
PROC: 02HV33Z Insertion of Infusion Device into Superior Vena Cava, Percutaneous Approach (ICD-10-PCS; 2021-03-05)
PROC: 0UB00ZZ Excision of Right Ovary, Open Approach (ICD-10-PCS; 2021-03-05)
PROC: 0JH60WZ Insertion of Totally Implantable Vascular Access Device into Chest Subcutaneous Tissue and Fascia, Open Approach (ICD-10-PCS; 2021-03-09)
PROC: 02HV33Z Insertion of Infusion Device into Superior Vena Cava, Percutaneous Approach (ICD-10-PCS; 2021-03-09)
PROC: B5181ZA Fluoroscopy of Superior Vena Cava using Low Osmolar Contrast, Guidance (ICD-10-PCS; 2021-03-09)
PROC: 0DH63UZ Insertion of Feeding Device into Stomach, Percutaneous Approach (ICD-10-PCS; 2021-03-11)
PROC: 0D768ZZ Dilation of Stomach, Via Natural or Artificial Opening Endoscopic (ICD-10-PCS; 2021-03-11)
PROC: 3E0336Z Introduction of Nutritional Substance into Peripheral Vein, Percutaneous Approach (ICD-10-PCS; 2021-03-13)
PROC: 0W9G3ZZ Drainage of Peritoneal Cavity, Percutaneous Approach (ICD-10-PCS; 2021-03-16)
DX: C18.4 Malignant neoplasm of transverse colon (principal); N18.6 End stage renal disease; E43 Unspecified severe protein-calorie malnutrition; E87.1 Hypo-osmolality and hyponatremia; J96.10 Chronic respiratory failure, unspecified whether with hypoxia or hypercapnia; R18.0 Malignant ascites; C78.6 Secondary malignant neoplasm of retroperitoneum and peritoneum; K31.1 Adult hypertrophic pyloric stenosis; C78.7 Secondary malignant neoplasm of liver and intrahepatic bile duct; D62 Acute posthemorrhagic anemia; N17.9 Acute kidney failure, unspecified; K56.7 Ileus, unspecified; I12.0 Hypertensive chronic kidney disease with stage 5 chronic kidney disease or end stage renal disease; C77.2 Secondary and unspecified malignant neoplasm of intra-abdominal lymph nodes; Z66 Do not resuscitate; Z51.5 Encounter for palliative care; Z20.822 Contact with and (suspected) exposure to COVID-19; E78.5 Hyperlipidemia, unspecified; J44.9 Chronic obstructive pulmonary disease, unspecified; F41.9 Anxiety disorder, unspecified; F39 Unspecified mood [affective] disorder; R74.8 Abnormal levels of other serum enzymes; D72.829 Elevated white blood cell count, unspecified; R13.12 Dysphagia, oropharyngeal phase; D21.4 Benign neoplasm of connective and other soft tissue of abdomen; E03.9 Hypothyroidism, unspecified; G47.33 Obstructive sleep apnea (adult) (pediatric); K20.90 Esophagitis, unspecified without bleeding; K63.5 Polyp of colon; E11.22 Type 2 diabetes mellitus with diabetic chronic kidney disease; I46.9 Cardiac arrest, cause unspecified; K66.8 Other specified disorders of peritoneum; R33.9 Retention of urine, unspecified; E87.5 Hyperkalemia; Z99.2 Dependence on renal dialysis; I69.391 Dysphagia following cerebral infarction; Z28.21 Immunization not carried out because of patient refusal; Z98.890 Other specified postprocedural states; Z68.26 Body mass index [BMI] 26.0-26.9, adult; Z88.6 Allergy status to analgesic agent; Z88.2 Allergy status to sulfonamides; Z88.8 Allergy status to other drugs, medicaments and biological substances; Z79.899 Other long term (current) drug therapy; Z79.02 Long term (current) use of antithrombotics/antiplatelets; Z79.4 Long term (current) use of insulin
CPT/HCPCS: 36415; 36416; 36430; 49083; 51701; 70450; 71045; 74018; 74019; 74176; 74177; 74230; 80048; 80053; 80061; 81001; 81003; 82378; 83735; 84100; 84134; 84443; 85014; 85018; 85025; 85060; 85610; 85730; 86850; 86900; 86901; 87070; 87077; 87086; 87186; 87205; 88305; 88307; 88309; 89051; 93005; 93010; C1751; C1788; C9113; J0360; J1100; J1170; J1450; J1642; J1815; J1885; J1940; J2185; J2250; J2270; J2405; J2704; J2765; J2916; J3010; J3475; J3480; J3490; J7030; J7042; J7050; J7070; J7611; J7620; J7626; P9016; P9047; Q9967; S0020; U0002; U0003; U0005